=== PATIENT | male | born 1960 | race Caucasian/White ===

== ENCOUNTER → 2016-06-28 | Outpatient (CLI) | payer OTHER ==
--- NOTE | 2016-06-28 09:56 | REP ---
MRI BRAIN WITHOUT AND WITH CONTRAST: HISTORY: Sensory neural hearing loss. CONTRAST: ProHance 19.2 mL. Several punctate areas of increased signal intensity on T2-weighted images are present in the subcortical white matter. This represents small vessel ischemic disease. There is no intraparenchymal hemorrhage, infarct, mass or midline shift. There is no abnormal enhancement. The ventricular system is normal in appearance. There is no extracerebral collection. There is no cerebellopontine angle mass. The inner ear structures are normal in appearance. The mastoid air cells are clear. Mucosal thickening is present in the ethmoid, frontal and right maxillary sinuses. IMPRESSION: Minimal small vessel ischemic disease. Signed by Carlos Natarajan MD 06/28/2016 10:07 A
== END ==
LOC: M RAD 08:46
PROVIDERS: ATTEND Otolaryngology
DX: H90.3 Sensorineural hearing loss, bilateral (principal)

== ENCOUNTER → 2016-07-26 | Outpatient (CLI) | payer OTHER ==
--- NOTE | 2016-07-26 18:37 | REP ---
Maxillofacial CT study without contrast: History: Chronic pansinusitis, allergic rhinitis. No prior sinus surgery. Comparison MRI study of the brain is from June 28, 2016. CT findings: The right maxillary sinus is completely opacified. There is indentation of the posterior wall of the maxillary sinus on the right raising the question of prior fracture. Its bony sinus margins are otherwise intact. The left maxillary sinus is clear. The ethmoid and sphenoid air cells are clear. There is mild mucosal thickening in the anterior inferior frontal sinuses bilaterally. There is a metallic foreign body in the scalp soft tissues at the right frontal bone just adjacent to the right frontal sinus. Another is visible at the crown of the scalp on the digital procurement engineer radiographs. This is out of the scanned field of view. Mastoid aeration is normal and symmetric. Petrous bone anatomy is unremarkable. Coronal multiplanar reformation images demonstrate patent ostiomeatal complexes bilaterally. No developmental variant is seen. The opacified right maxillary sinus abuts the ostium of the OMC on the right. The right ostiomeatal complex is somewhat narrowed. Impression: Narrowing of the right OMC. Completely opacified right maxillary sinus. Question old fracture of the posterior wall of the right maxillary sinus. Mild mucosal thickening in the frontal sinuses bilaterally. No other abnormality. Signed by Narayan Reddy MD 07/26/2016 07:02 P
== END ==
LOC: M RAD 16:48
PROVIDERS: ATTEND Otolaryngology
DX: J32.4 Chronic pansinusitis (principal); J30.9 Allergic rhinitis, unspecified

== ENCOUNTER → 2016-09-04 | Outpatient (REF) | payer OTHER | LOC: M LAB REF 15:17 | PROVIDERS: ATTEND Nurse Practitioner Family | DX: B35.1 Tinea unguium (principal) ==

== ENCOUNTER → 2016-11-05 | Outpatient (REF) | payer OTHER | LOC: M LAB REF 13:20 | PROVIDERS: ATTEND Nurse Practitioner Family | DX: L60.3 Nail dystrophy (principal); B35.1 Tinea unguium ==

== ENCOUNTER → 2016-12-07 | Outpatient (CLI) | payer OTHER ==
[2016-12-07 16:49] LABS: ALBUMIN 3.6 GM/DL (3.2-5.2); ALBUMIN/GLOBULIN RATIO 1.29 (1.00-1.93); BILIRUBIN,DIRECT 0.2 MG/DL (0.0-0.2); BILIRUBIN,TOTAL 0.7 MG/DL (0.2-1.0); TOTAL PROTEIN 6.4 GM/DL (6.4-8.2)
== END ==
LOC: M ADAMS 09:43
PROVIDERS: ATTEND Nurse Practitioner Family
DX: Z51.81 Encounter for therapeutic drug level monitoring (principal); Z79.899 Other long term (current) drug therapy; B35.1 Tinea unguium

== ENCOUNTER → 2017-01-05 | Outpatient (CLI) | payer OTHER ==
[2017-01-05 16:50] LABS: ALBUMIN 3.8 GM/DL (3.2-5.2); ALBUMIN/GLOBULIN RATIO 1.19 (1.00-1.93); BILIRUBIN,DIRECT 0.1 MG/DL (0.0-0.2); BILIRUBIN,TOTAL 0.6 MG/DL (0.2-1.0)
== END ==
LOC: M ADAMS 12:01
PROVIDERS: ATTEND Nurse Practitioner Family
DX: Z51.81 Encounter for therapeutic drug level monitoring (principal); Z79.899 Other long term (current) drug therapy; B35.1 Tinea unguium

== ENCOUNTER → 2017-12-03 | Outpatient (CLI) | payer OTHER ==
[2017-12-03 20:09] LABS: EOS # 0.1 10^3/uL (0.0-0.50); EOS % 1.5 % (0.0-3.0); HEMATOCRIT 46.2 % (42.0-52.0); HEMOGLOBIN 15.7 g/dl (13.5-17.5); IMMATURE GRANULOCYTE % 0.4 % (0-3.0); LYMPH # 1.4 10^3/uL (1.5-4.5); MEAN CORPUSCULAR HEMOGLOBIN 30.6 pg (27.0-33.0); MEAN CORPUSCULAR VOLUME 90.1 fl (80.0-96.0); MONO # 0.5 10^3/uL (0.0-0.8); MONO % 10.1 % (0.0-5.0); NEUTROPHILS # 3.3 10^3/uL (1.8-7.7); PLATELET COUNT, AUTOMATED 223 10^3/uL (150-450); RED BLOOD COUNT 5.13 10^6/uL (4.30-6.10); RED CELL DISTRIBUTION WIDTH 12.6 % (11.5-14.5); WHITE BLOOD COUNT 5.2 10^3/uL (4.0-10.0)
[2017-12-03 20:37] LABS: ALBUMIN 3.4 GM/DL (3.2-5.2); ALBUMIN/GLOBULIN RATIO 1.03 (1.00-1.93); ALKALINE PHOSPHATASE 55 U/L (45-117); ALT/SGPT 22 U/L (12-78); ANION GAP 5 MEQ/L (8-16); AST/SGOT 16 U/L (7-37); BILIRUBIN,TOTAL 0.4 MG/DL (0.2-1.0); BLOOD UREA NITROGEN 18 MG/DL (7-18); CALCIUM LEVEL 8.4 MG/DL (8.5-10.1); CARBON DIOXIDE LEVEL 31 MEQ/L (21-32); CHLORIDE LEVEL 107 MEQ/L (98-107); CREATININE FOR GFR 1.31 MG/DL (0.70-1.30); GLOMERULAR FILTRATION RATE 59.8 (>56); GLUCOSE, FASTING 89 MG/DL (70-100); POTASSIUM SERUM 4.5 MEQ/L (3.5-5.1); SODIUM LEVEL 143 MEQ/L (136-145); TOTAL PROTEIN 6.7 GM/DL (6.4-8.2)
== END ==
LOC: M ADAMS 13:55
DX: R10.816 Epigastric abdominal tenderness (principal)
CPT/HCPCS: 80053

== ENCOUNTER → 2017-12-05 | Outpatient (CLI) | payer OTHER | LOC: M RAD 06:27 | DX: R10.816 Epigastric abdominal tenderness (principal); R10.811 Right upper quadrant abdominal tenderness; K82.8 Other specified diseases of gallbladder | CPT/HCPCS: 76705 ==

== ENCOUNTER → 2018-05-25 | Outpatient (CLI) | payer OTHER ==
[~2018-05-25] MED LIST: E-Z-GAS II EFFERVESCENT PACKET (SODIUM BICARB./CITRIC ACID/SIMETHICONE) As Ordered ONE; E-Z-HD 98% w/w 340GM SUSP BTL As Ordered ONE; E-Z-PAQUE 96% w/w SUSP 176GM BTL As Ordered ONE
--- NOTE | 2018-05-25 20:17 | REP ---
Upper GI air contrast The procedure was performed under the direct supervision of Dr. Reddy. The images were reviewed with Dr. Reddy The alum mixer film shows no organomegaly or pathological masses. The intestinal gas pattern is non-specific. Liquid barium and gas producing crystals were given in the erect position as well as liquid barium in the prone oblique position in order to perform a double contrast upper GI examination. The oral and pharyngeal stages of deglutition are unremarkable. Esophageal transport is prompt and efficient and there is no esophagitis stricture mucosal ring or hiatal hernia. Gastroesophageal reflux is not demonstrated on this examination. Within the stomach there are multiple sub centimeter polyps. The duodenal loving are normally outlined . The mucosal folds are smooth and regular. There is no duodenitis pancreatitis peptic ulcer disease or neoplasm. The visualized portion of the proximal small bowel appears normal in course and caliber. Impression: Essentially unremarkable double contrast upper GI examination. 2.9 minutes of fluoro time was utilized for this procedure. Reviewed by AKBAR Jackson 05/25/2018 04:59 P Electronically Signed by Narayan Reddy MD 05/25/2018 08:09 P
== END ==
LOC: M RAD 08:31
PROVIDERS: ATTEND Internal Medicine
DX: R10.13 Epigastric pain (principal)

== ENCOUNTER → 2018-08-01 | Outpatient (CLI) | payer OTHER | LOC: M ADAMS 09:18 | PROVIDERS: ATTEND Urology | DX: Z12.5 Encounter for screening for malignant neoplasm of prostate (principal) ==

== ENCOUNTER → 2019-05-17 | Outpatient (REF) | payer OTHER ==
[2019-05-20 00:07] LABS: Lyme Disease IgG Ab 18 kDa Ban Absent (.); Lyme Disease IgG Ab 23 kDa Ban Absent (.); Lyme Disease IgG Ab 28 kDa Ban Absent (.); Lyme Disease IgG Ab 30 kDa Ban Absent (.); Lyme Disease IgG Ab 39 kDa Ban Absent (.); Lyme Disease IgG Ab 41 kDa Ban Absent (.); Lyme Disease IgG Ab 45 kDa Ban Absent (.); Lyme Disease IgG Ab 58 kDa Ban Absent (.); Lyme Disease IgG Ab 66 kDa Ban Absent (.); Lyme Disease IgG Ab 93 kDa Ban Absent (.); Lyme Disease IgG West Blot Int Negative (.); Lyme Disease IgG/IgM Antibodie <0.91 ISR (0.00-0.90); Lyme Disease IgM Ab 23 kDa Ban Absent (.); Lyme Disease IgM Ab 39 kDa Ban Absent (.); Lyme Disease IgM Ab 41 kDa Ban Absent (.); Lyme Disease IgM Ab Quantitati 1.37 index (0.00-0.79); Lyme Disease IgM West Blot Int Negative (.)
== END ==
LOC: M LAB REF 17:18
PROVIDERS: ATTEND Internal Medicine
DX: Z11.59 Encounter for screening for other viral diseases (principal)

== ENCOUNTER → 2019-10-12 | Outpatient (REF) | payer OTHER ==
[2019-10-12 19:25] LABS: BLOOD UREA NITROGEN 18 MG/DL (7-18); CALCIUM LEVEL 8.7 MG/DL (8.8-10.2); CARBON DIOXIDE LEVEL 33 MEQ/L (21-32); CHLORIDE LEVEL 106 MEQ/L (98-107); CREATININE FOR GFR 1.15 MG/DL (0.70-1.30); GLOMERULAR FILTRATION RATE > 60.0 (>49); GLUCOSE, FASTING 79 MG/DL (70-100); POTASSIUM SERUM 4.8 MEQ/L (3.5-5.1); PROSTATIC SPECIFIC AG MONITOR 2.43 NG/ML (< 4.00); SODIUM LEVEL 142 MEQ/L (136-145)
== END ==
LOC: M LABDRWAD 17:08
PROVIDERS: ATTEND Urology
DX: Z12.5 Encounter for screening for malignant neoplasm of prostate (principal); R31.21 Asymptomatic microscopic hematuria

== ENCOUNTER 2019-11-30 15:45 | Emergency (ER) | payer OTHER ==
[~2019-11-30] VITALS: Ht 167.6 cm; Wt 90.9 kg
[2019-11-30] MEDS ORDERED: GABA-843 PO (16:09)
[2019-11-30] MEDS ORDERED: OXYC1TAB23 PO (16:09)
[2019-11-30] MEDS ORDERED: CYCL-707 PO (16:09)
[2019-11-30] MEDS ORDERED: METH4PACK PO (16:09)
[2019-11-30] MEDS ORDERED: ONDA4TAB6 SL (16:09)
--- NOTE | 2019-11-30 18:41 | REPVR ---
PROCEDURE INFORMATION: Exam: CT Lumbar Spine Without Contrast Exam date and time: 11/30/2019 6:05 PM Age: 59 years old Clinical indication: Low back pain; Prior surgery; Surgery date: 3-7 days post-operative; Additional info: Severe right lower back pain; S/P fusion/lami 11/21 TECHNIQUE: Imaging protocol: Computed tomography images of the lumbar spine without contrast. Radiation optimization: All CT scans at this facility use at least one of these dose optimization techniques: automated exposure control; mA and/or kV adjustment per patient size (includes targeted exams where dose is matched to clinical indication); or iterative reconstruction. COMPARISON: No relevant prior studies available. FINDINGS: Vertebrae: Status post posterior interbody fusion of L4-S1 using transpedicular screws, bone grafts, and metallic side plates. Status post L4 and L5 bilateral laminectomies. There is a grade 2 anterolisthesis of L5 on S1 with sclerotic changes in the bone flanking the joint space which is markedly narrowed. L1-L2: No significant disc protrusion. No severe spinal canal stenosis. No significant neural foraminal narrowing. L2-L3: There is a mild central spinal stenosis at L2-L3 secondary to diffuse annular bulging, thickened ligamentum flavum without facet joint arthropathy. L3-L4: No significant disc protrusion. No severe spinal canal stenosis. No significant neural foraminal narrowing. L4-L5: Examination of L4-L5 demonstrates adequate decompression of the thecal sac with typically expected postoperative changes in the posterior paraspinal soft tissues. L5-S1: Examination of L5-S1 demonstrates decompression of the thecal sac with typically expected postoperative changes in the posterior paraspinal soft tissues. Soft tissues: Postoperative changes demonstrated in the posterior paraspinal soft tissues from the superior margin of L4 to the superior margin of S1. Numerous gas locules demonstrated adjacent to the left facet joint at L4. Also noted are gas locules adjacent to the right lamina and medial to the right facet joint at L3-L4. These likely represent postoperative and/or chronic degenerative changes. Clinical correlation to exclude an abscess suggested. No fluid collection demonstrated in the paraspinal soft tissues. Mild atherosclerotic changes in the abdominal aorta. Retained feces in the colon consistent with constipation. IMPRESSION: 1. There is a grade 2 anterolisthesis of L5 on S1. 2. Status post posterior interbody fusion of L4-S1. 3. Typically expected postoperative changes demonstrated in the posterior paraspinal soft tissues extending from the superior margin of L4 to the superior margin of S1. No large fluid collection demonstrated. Gas locules as described above likely represent chronic degenerative/postoperative change. Clinical correlation to exclude an abscess suggested. 4. Mild central spinal stenosis at L2-L3. Adequate decompression of the thecal sac at L4-L5 and L5-S1. Electronically signed by: Duncan Sow On 11/30/2019 18:41:28 PM
[2019-11-30] MEDS ORDERED: HYDROmorphone 2 MG TAB PO ONE ×2 (20:15→21:30)
[2019-11-30] MEDS ORDERED: DILA2TAB6 PO (21:29)
[2019-11-30] MEDS ORDERED: HYDROMORPHONE HCL 0.5 MG/ 0.5 ML SYRINGE (J1170 PER 1) IV ONE (23:00)
[2019-11-30 23:20] LABS: BASO % 0.3 % (0.0-1.0); EOS # 0.1 10^3/uL (0.0-0.5); EOS % 1.1 % (0.0-3.0); HEMATOCRIT 38.6 % (42.0-52.0); LYMPH # 1.4 10^3/uL (1.5-5.0); LYMPH % 19.4 % (24.0-44.0); MEAN CORPUSCULAR HEMOGLOBIN 30.3 pg (27.0-33.0); MEAN CORPUSCULAR HGB CONC 33.7 g/dl (32.0-36.5); MONO # 0.6 10^3/uL (0.0-0.8); MONO % 8.5 % (0.0-5.0); NEUTROPHILS % 69.7 % (36.0-66.0); PLATELET COUNT, AUTOMATED 396 10^3/uL (150-450); RED BLOOD COUNT 4.29 10^6/uL (4.30-6.10); WHITE BLOOD COUNT 7.2 10^3/uL (4.0-10.0)
[2019-11-30 23:40] LABS: BLOOD UREA NITROGEN 22 MG/DL (7-18); CALCIUM LEVEL 8.2 MG/DL (8.8-10.2); CARBON DIOXIDE LEVEL 29 MEQ/L (21-32); CHLORIDE LEVEL 103 MEQ/L (98-107); CK-MB VALUE MASS < 1.0 NG/ML (<3.6); CPK CREATINE PHOSPHOKINASE 135 U/L (39-308); CREATININE FOR GFR 1.14 MG/DL (0.70-1.30); GLOMERULAR FILTRATION RATE > 60.0 (>49); GLUCOSE, FASTING 138 MG/DL (70-100); MB/CK RELATIVE INDEX 0.74 (< OR =4); POTASSIUM SERUM 4.1 MEQ/L (3.5-5.1); SODIUM LEVEL 138 MEQ/L (136-145); TROPONIN I < 0.02 NG/ML (< 0.10)
[2019-12-01 02:37] VITALS: BP 128/68
--- NOTE | 2019-12-01 10:55 | ECGEPIP ---
[facility] - ED Test Date: 2019-11-30 Pat Name: VIVIAN BENNETT Department: Room: - Gender: Male Systems Specialist: maxine : 1960 Requested By: LANDON FLORES Order Number: [id number] Reading MD: Krysten Atkins Measurements Intervals [place] Rate: 53 P: 53 LA: 144 QRS: 11 QRSD: 104 T: -4 QT: 411 QTc: 389 Interpretive Statements SINUS BRADYCARDIA NONSPECIFIC T-WAVE ABNORMALITY NO PRIOR Electronically Signed on 12-01-2019 10:55:39 EDT by Krysten Atkins
== END 2019-12-01 02:49 | disposition short-term general hospital (02) ==
LOC: M ED 15:45 → EDBD 15:45 → M ED 12-01 02:49
DX: G89.18 Other acute postprocedural pain (principal); M54.5 Low back pain; R00.1 Bradycardia, unspecified; M43.17 Spondylolisthesis, lumbosacral region; M48.061 Spinal stenosis, lumbar region without neurogenic claudication; Z79.899 Other long term (current) drug therapy
CPT/HCPCS: 72131; 80048; 82550; 82553; 84484; 85025; 93005; 93041; 94760; 96374; 99285; J1170; U0002

== ENCOUNTER → 2020-10-27 | Outpatient (CLI) | payer OTHER ==
[~2020-10-27] MED LIST changes: +CYCL-707 PO; +DILA2TAB6 PO; -E-Z-GAS II EFFERVESCENT PACKET (SODIUM BICARB./CITRIC ACID/SIMETHICONE) As Ordered ONE; -E-Z-HD 98% w/w 340GM SUSP BTL As Ordered ONE; -E-Z-PAQUE 96% w/w SUSP 176GM BTL As Ordered ONE; +GABA-282 PO; +METH4PACK PO; +ONDA4TAB6 SL; +OXYC1TAB23 PO
[2020-10-27 16:33] LABS: BASO % 0.3 % (0.0-1.0); EOS # 0.1 10^3/uL (0.0-0.5); EOS % 2.8 % (0.0-3.0); HEMATOCRIT 47.1 % (42.0-52.0); HEMOGLOBIN 15.4 g/dl (13.5-17.5); LYMPH # 1.3 10^3/uL (1.5-5.0); LYMPH % 35.1 % (24.0-44.0); MEAN CORPUSCULAR HEMOGLOBIN 30.3 pg (27.0-33.0); MEAN CORPUSCULAR HGB CONC 32.7 g/dl (32.0-36.5); MEAN CORPUSCULAR VOLUME 92.7 fl (80.0-96.0); MONO # 0.7 10^3/uL (0.0-0.8); MONO % 19.9 % (2.0-8.0); NEUTROPHILS # 1.5 10^3/uL (1.5-8.5); NEUTROPHILS % 41.6 % (36.0-66.0); PLATELET COUNT, AUTOMATED 200 10^3/uL (150-450); RED BLOOD COUNT 5.08 10^6/uL (4.30-6.10); WHITE BLOOD COUNT 3.6 10^3/uL (4.0-10.0)
[2020-10-27 17:00] LABS: ALBUMIN 3.7 GM/DL (3.2-5.2); ALT/SGPT 33 U/L (12-78); BILIRUBIN,TOTAL 0.5 MG/DL (0.2-1.0); BLOOD UREA NITROGEN 24 MG/DL (7-18); CALCIUM LEVEL 8.6 MG/DL (8.8-10.2); CARBON DIOXIDE LEVEL 29 MEQ/L (21-32); CHLORIDE LEVEL 108 MEQ/L (98-107); CREATININE FOR GFR 1.12 MG/DL (0.70-1.30); GLOMERULAR FILTRATION RATE > 60.0 (>49); GLUCOSE, FASTING 69 MG/DL (70-100); POTASSIUM SERUM 4.2 MEQ/L (3.5-5.1); SODIUM LEVEL 140 MEQ/L (136-145); TOTAL PROTEIN 6.8 GM/DL (6.4-8.2)
[2020-10-31 15:08] LABS: Lyme Disease IgG Ab 18 kDa Ban Absent (.); Lyme Disease IgG Ab 23 kDa Ban Absent (.); Lyme Disease IgG Ab 28 kDa Ban Absent (.); Lyme Disease IgG Ab 30 kDa Ban Absent (.); Lyme Disease IgG Ab 39 kDa Ban Absent (.); Lyme Disease IgG Ab 41 kDa Ban Absent (.); Lyme Disease IgG Ab 45 kDa Ban Absent (.); Lyme Disease IgG Ab 58 kDa Ban Absent (.); Lyme Disease IgG Ab 66 kDa Ban Absent (.); Lyme Disease IgG Ab 93 kDa Ban Absent (.); Lyme Disease IgG West Blot Int Negative (.); Lyme Disease IgG/IgM Antibodie <0.91 ISR (0.00-0.90); Lyme Disease IgM Ab 23 kDa Ban Absent (.); Lyme Disease IgM Ab 39 kDa Ban Absent (.); Lyme Disease IgM Ab 41 kDa Ban Absent (.); Lyme Disease IgM Ab Quantitati 1.46 index (0.00-0.79); Lyme Disease IgM West Blot Int Negative (.)
== END ==
LOC: M WUC 11:25
PROVIDERS: ATTEND Physician Assistant
DX: R21 Rash and other nonspecific skin eruption (principal); R53.83 Other fatigue

== ENCOUNTER → 2021-08-22 | Outpatient (CLI) | payer OTHER | LOC: M ADAMS 14:50 | PROVIDERS: ATTEND Urology | DX: Z12.5 Encounter for screening for malignant neoplasm of prostate (principal) ==

== ENCOUNTER → 2021-12-23 | Outpatient (CLI) | payer OTHER ==
[~2021-12-23] MED LIST changes: +CLAR10CA3 PO; +GNP10TAB20 PO; +OMEG500C3 PO; +SILO8CAP PO; +VITA100093 PO
== END ==
LOC: M LABSMTC 10:47
PROVIDERS: ATTEND Anesthesiology
DX: Z01.812 Encounter for preprocedural laboratory examination (principal); Z20.822 Contact with and (suspected) exposure to COVID-19

== ENCOUNTER 2021-12-26 06:52 | Day surgery (SDC) | payer OTHER ==
[~2021-12-26] VITALS: Ht 167.6 cm; Wt 88.6 kg
[~2021-12-26 06:52] MED LIST changes: +NS 1,000 ML IV ONE
[2021-12-26] MEDS ORDERED: propofoL 200 MG/20 ML VIAL As Ordered ONE (08:01)
[2021-12-26] MEDS ORDERED: LIDOCAINE 2% 100MG/5ML SDV (FOR ANES.) As Ordered ONE (08:01)
[2021-12-26 08:34] VITALS: BP 114/69
== END 2021-12-26 08:36 | disposition home or self-care (01) ==
LOC: M OPP 06:52
PROVIDERS: ATTEND Internal Medicine Gastroenterology
DX: Z12.11 Encounter for screening for malignant neoplasm of colon (principal); Z86.010 Personal history of colon polyps; K57.30 Diverticulosis of large intestine without perforation or abscess without bleeding; K64.0 First degree hemorrhoids; I49.3 Ventricular premature depolarization; N32.89 Other specified disorders of bladder; Z79.899 Other long term (current) drug therapy

== ENCOUNTER → 2022-09-04 | Outpatient (REF) | payer OTHER ==
[~2022-09-04] MED LIST changes: -NS 1,000 ML IV ONE; -OMEG500C3 PO; +[UNRECOGNIZED DRUG - CODE] PO
== END ==
LOC: M LABDRAWP 12:43
PROVIDERS: ATTEND Nurse Practitioner Family
DX: R33.9 Retention of urine, unspecified (principal)
CPT/HCPCS: 36415; G0103

== ENCOUNTER → 2023-01-30 | Outpatient (REF) | payer OTHER ==
[2023-01-30 13:17] LABS: APPEARANCE, URINE HAZY (CLEAR); BACTERIA, URINE AUTO NEGATIVE (NEGATIVE); BILIRUBIN, URINE AUTO NEGATIVE (NEGATIVE); BLOOD, URINE BLOOD NEGATIVE (NEGATIVE); COLOR, URINE YELLOW (YELLOW); GLUCOSE, URINE (UA) AUTO NEGATIVE (NEGATIVE); KETONE, URINE AUTO NEGATIVE (NEGATIVE); LEUKOCYTE ESTERASE, URINE AUTO NEGATIVE (NEGATIVE); MUCUS, URINE SMALL (NEGATIVE); NITRITE, URINE AUTO NEGATIVE (NEGATIVE); PROTEIN, URINE AUTO NEGATIVE (NEGATIVE); RBC, URINE AUTO 1 /HPF (0-3); SPECIFIC GRAVITY URINE AUTO 1.014 (1.002-1.035); SQUAMOUS EPITHELIAL CELL UR AU 0 /HPF (0-6); UROBILINOGEN, URINE AUTO 0.2 mg/dL (0.0-2.0); WBC, URINE AUTO 2 /HPF (0-3)
== END ==
LOC: M LAB REF 11:37
PROVIDERS: ATTEND Internal Medicine
DX: Z01.810 Encounter for preprocedural cardiovascular examination (principal); N40.1 Benign prostatic hyperplasia with lower urinary tract symptoms

== ENCOUNTER → 2023-09-05 | Outpatient (REF) | payer OTHER | LOC: M LABDRWAD 12:11 | PROVIDERS: ATTEND Pediatrics | DX: N40.1 Benign prostatic hyperplasia with lower urinary tract symptoms (principal) ==

== ENCOUNTER → 2024-04-06 | Outpatient (CLI) | payer MEDICARE, OTHER ==
[~2024-04-06] MED LIST changes: +GABA-1172 PO; -GABA-282 PO; +ONDA-282 SL; -ONDA4TAB6 SL; -SILO8CAP PO; +SILO8CAP3 PO
[2024-04-06 19:17] LABS: CREATININE FOR GFR 1.21 MG/DL (0.70-1.30); GLOMERULAR FILTRATION RATE > 60.0 (>49)
== END ==
LOC: M PLALAB 16:08
PROVIDERS: ATTEND Orthopaedic Surgery
DX: M54.50 Low back pain, unspecified (principal)

== ENCOUNTER → 2024-09-01 | Outpatient (REF) | payer MEDICARE, OTHER | LOC: M LABDRWAD 12:53 | DX: N40.1 Benign prostatic hyperplasia with lower urinary tract symptoms (principal); Z12.5 Encounter for screening for malignant neoplasm of prostate | CPT/HCPCS: 36415; G0103 ==